=== PATIENT | female | born 1985 | race Caucasian/White ===

== ENCOUNTER 2020-04-12 12:38 | Emergency (ER) | payer OTHER ==
[~2020-04-12] VITALS: Ht 162.6 cm; Wt 68.0 kg
[2020-04-12] MEDS ORDERED: IMITREX100 MG PO (13:03)
[2020-04-12] MEDS ORDERED: VENTOLIN HFA18 GM INH (13:04)
--- OUTSIDE RECORDS SUMMARY | 2020-04-12 14:46 | XMS ---
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 [place] VISIT COUNT (12 MO.) Adilene Beaulieu TOTAL 1 NOTE: Visits indicate total known visits. ED/UCC VISIT TRACKING (12 MO.) 04/12/2020 12:[address] [facility] [place] TYPE: Emergency COMPLAINT: - HEADACHE INPATIENT VISIT TRACKING (12 MO.) No inpatient visits to display in this time frame [email or web address]
[2020-04-12] MEDS ORDERED: REGLAN10 MG PO (15:30)
== END 2020-04-12 16:31 | disposition home or self-care (01) ==
LOC: ED 12:38
DX: G43.909 Migraine, unspecified, not intractable, without status migrainosus (principal); F17.200 Nicotine dependence, unspecified, uncomplicated; Z91.013 Allergy to seafood; J45.909 Unspecified asthma, uncomplicated
CPT/HCPCS: 96374; 96375; 99283-25; J1100; J1200; J1885; J2765; J7030